=== PATIENT | female | born 1930 | race Caucasian/White ===

== ENCOUNTER 2019-01-27 08:28 | Inpatient (IN) | payer OTHER ==
[~2019-01-27] VITALS: Ht 162.6 cm; Wt 55.8 kg
[2019-01-28] MEDS ORDERED: DILTIAZEM HCL60 MG PO (15:44)
[2019-01-28] MEDS ORDERED: MONDOXYNE NL100 MG (15:45)
[2019-02-01] MEDS ORDERED: XARELTO20 MG PO (11:04)
[2019-02-01] MEDS ORDERED: CARDIZEM60 MG PO (11:05)
[2019-02-01] MEDS ORDERED: TOPROL XL50 M1 PO (11:05)
== END 2019-02-01 13:42 | disposition home or self-care (01) | DRG 309 ==
LOC: ER 08:28 → MEDJ 15:04 → SEC-K 16:42 → MEDJ 16:48
PROVIDERS: ADMIT Student in an Organized Health Care Education/Training Program
PROC: B246ZZZ Ultrasonography of Right and Left Heart (ICD-10-PCS; principal; 2019-01-27)
PROC: 4A12X4Z Monitoring of Cardiac Electrical Activity, External Approach (ICD-10-PCS; 2019-01-27)
DX: I48.91 Unspecified atrial fibrillation (principal); F03.91 Unspecified dementia, unspecified severity, with behavioral disturbance; Z79.01 Long term (current) use of anticoagulants; I34.0 Nonrheumatic mitral (valve) insufficiency; I36.1 Nonrheumatic tricuspid (valve) insufficiency; I35.1 Nonrheumatic aortic (valve) insufficiency

== ENCOUNTER 2019-09-05 10:09 | Inpatient (IN) | payer OTHER ==
[~2019-09-05] VITALS: Ht 160 cm; Wt 54.4 kg
[~2019-09-05 10:09] MED LIST: CARDIZEM60 MG PO; DILTIAZEM HCL60 MG PO; MONDOXYNE NL100 MG; TOPROL XL50 M1 PO; XARELTO20 MG PO
--- NOTE | 2019-09-05 10:28 | NUR ---
PACIENTE ALERTA, ACOMPANADA DE VECINA LA CUAL INDICA QUE LA MICHAEL POR QUE LA ENCONTRO EN EL PISO EN LA MANANA DE HOY. SE OBSERVA AMARILLENTA, REFIERE QUE SOLO TIENE LA PIEL RIJA. SE REALIZA EKG PAR MAREO Y PRESENTA CAMBIOS SIGNIFICATIVOS. SE LE PRESENRA A DR. LOUIS, EL CUAL INDICA UBICAR PTE EN UNIDAD CRITICA.
--- NOTE | 2019-09-05 12:26 | NUR ---
1030 SE RECIBE PT ALERTA Y ORIENTADA, UN POCO ATURDIDA AL MOMENTO DE COMUNICARSE. PT REFIERE TUVO CAIDA EN SCHAFFER CASA SIN SABER HAYLIE. REFIERE NO PADECER DE CONDICIONES DE ADAN. AL MOMENTO EN COMPANIA DE SCHAFFER VECINA QUIEN REFIERE PTE NO TIENE DEION. PT PRESENTA ICTERICIA Y DIFICULTAD RESPIRATORIA. SE UBICA EN CAMA #2 DE ICU-2 CONECTADA A MONITOR CARDIACO Y OXIMETRIA DE PULSO CONTINUA. SE LE CANALIZA X2 EN MANO RT Y SE LE COLECTAN MUESTRAS BAJO MEDIDAS ASEPTICAS. PT CON A FIB DE 160 -192 LPM, ES EVALUADA POR DR LEBLANC QUIEN ORDENA GREG DE CARDIZEM 20MG IV STAT Y COMENZAR DRIP 100MG/100ML 0.9NSS BAJANDO A 3ML/HR. SE LE ADMINISTRAN MEDICAMENTOS SAI PRESCRITOS PT TOLERA. 1110. SE OBSERVA HR 135-150LPM. SE LE REALIZA CXR Y SE MANTIENE EN OBSERVACION POR CAMBIOS. 1226 SE LE INSERTA SONDA URINARIA # 16 BAJO MEDIDAS ESTERILES PT TOLERA.
--- NOTE | 2019-09-05 14:12 | NUR ---
SE CONECTA A PTE A VENTURY MASK AL 35%. SE LE COLECTAN MUESTRAS BAJO MEDIDAS ASEPTICAS POR [address]ER[address] VE[address] LUEGO DE 2DA LLAMADA DE LABORATORIO POR MUESTRAS HEMOLIZADAS.
--- NOTE | 2019-09-05 14:43 | NUR ---
PT DESORIENTADA, SE REMUEVE EQUIPO Y VENOPUNCION. SE LE RESTRINGUE DE EXTREMIDADES SUPERIORES POR ORDEN DE DR LEBLANC.
--- NOTE | 2019-09-05 15:00 | NUR ---
PACIENTE ALERTA Y ORIENTADA EN PERSONA, PRESENTA PATRON RESPIRATORIO IRREGULAR (TAQUIPNEA 30-40 RESP/MIN), TIENE ORDENADO UN VM AL 35% EL CUAL SE MORAIMA, SE ORIENTA SOBRE LA IMPORTANCIA DE MANTENERLO PUESTO, REFIERE QUE NO LO NECESITA Y NO TENER DIFICULTAD PARA RESPIRAR. SPO2 94%. PACIENTE CONECTADA A MONITOR CARDIACO PRESENTANDO TAQUICARDIA SINOSAL. CANALIZADA X 1 EN MANO RT PATENTE Y RADHA DE S/S DE FLEBITIS E INFILTRACION. RECIBIENDO CARDIZEM 100 MG A 10 ML/HR, 0.9% NSS A 50 ML/HR Y ZITHROMAX 500 MG. PACIENTE RESTRINGIDA EN EXTREMIDADES SUPERIORES. SONDA URINARIA DRENANDO ORINA AMARILLO OSCURO. PENDIENTE EVALUACION DE MEDICINA INTERNA CON DREW DIAZ POR LRTI.
== END 2019-09-07 02:55 | disposition expired | DRG 308 ==
LOC: ER 10:09 → ICU-2 17:54 → ICU 09-06 20:05
PROVIDERS: ADMIT Internal Medicine; ATTEND Internal Medicine
PROC: 8E0ZXY6 Isolation (ICD-10-PCS; principal; 2019-09-05)
PROC: 4A033R1 Measurement of Arterial Saturation, Peripheral, Percutaneous Approach (ICD-10-PCS; 2019-09-05)
PROC: BW28ZZZ Computerized Tomography (CT Scan) of Head (ICD-10-PCS; 2019-09-05)
PROC: 0BH17EZ Insertion of Endotracheal Airway into Trachea, Via Natural or Artificial Opening (ICD-10-PCS; 2019-09-06)
PROC: B24BZZZ Ultrasonography of Heart with Aorta (ICD-10-PCS; 2019-09-06)
PROC: 5A1935Z Respiratory Ventilation, Less than 24 Consecutive Hours (ICD-10-PCS; 2019-09-06)
DX: I47.1 Supraventricular tachycardia (principal); J96.01 Acute respiratory failure with hypoxia; A41.9 Sepsis, unspecified organism; J12.9 Viral pneumonia, unspecified; E87.2 Acidosis; F03.90 Unspecified dementia, unspecified severity, without behavioral disturbance, psychotic disturbance, mood disturbance, and anxiety; E86.0 Dehydration; I48.91 Unspecified atrial fibrillation; D72.810 Lymphocytopenia; K80.50 Calculus of bile duct without cholangitis or cholecystitis without obstruction; S00.83XA Contusion of other part of head, initial encounter; W18.30XA Fall on same level, unspecified, initial encounter